=== PATIENT | female | born 1955 | race Caucasian/White ===

== ENCOUNTER 2021-05-23 22:58 | Inpatient (IN) | payer MEDICARE ==
[2021-05-23] MEDS ORDERED: Calcium Gluc 4.6 MEQ/10 ML (100 MG/ML) ONE (23:54)
[2021-05-23] MEDS ORDERED: Vancomycin 1 GM/200 ML BAG ONE (23:54)
[2021-05-23] MEDS ORDERED: Cefepime 2 GM VIAL ONE (23:54)
[2021-05-24 00:52] LABS: Anion Gap 13 mmol/L (10-20); BUN (Urea Nitrogen) 58 mg/dL (9.8-20.1); Calc. Creatinine Clearance 0 mL/min (70-130); Carbon Dioxide 23 mmol/L (23-31); Chloride 100 mmol/L (98-107); Glucose 197 mg/dL (80-115); Potassium 6.2 mmol/L (3.5-5.1); Sodium 130 mmol/L (136-145)
[2021-05-24] MEDS ORDERED: Calcium Gluc 4.6 MEQ/10 ML (100 MG/ML) ONE (01:37)
[2021-05-24] MEDS ORDERED: Insulin Regular 300 UNITS/3 ML VIAL ONE (01:37)
[2021-05-24] MEDS ORDERED: Dextrose 50% Abboject 50 ML SYRINGE ONE ×2 (01:38→01:39)
[2021-05-24] MEDS ORDERED: Sodium Bicarb 50 MEQ/50 ML Abboject 8.4% SYRINGE ONE (01:38)
[2021-05-24] MEDS ORDERED: Furosemide 40 MG/4 ML VIAL ONE (02:02)
[2021-05-24 03:36] LABS: Bilirubin Negative (Negative); Blood, Urine Negative (Negative); Clarity Clear (Clear); Glucose, Urine (Dipstick) 300 mg/dL (Negative); Ketone, Urine Negative (Negative); Leukocyte Negative Leu/uL (Negative); Nitrite Negative (Negative); Protein, Urine (Dipstick) Negative (Neg-Trace); Specific Gravity, Urine 1.007 (1.002-1.036); Urobilinogen Normal mg/dL (Less than 2)
[2021-05-24 03:45] LABS: ALT (SGPT) 75 U/L (8-55); AST (SGOT) 66 U/L (5-34); Albumin 2.8 g/dL (3.4-4.8); Alkaline Phosphatase 142 U/L (40-110); Anion Gap 13 mmol/L (10-20); BUN (Urea Nitrogen) 63 mg/dL (9.8-20.1); Calc. Creatinine Clearance 0 mL/min (70-130); Calcium 10.9 mg/dL (7.8-10.44); Carbon Dioxide 26 mmol/L (23-31); Chloride 97 mmol/L (98-107); Globulin 3.9 g/dL (2.4-3.5); Glucose 302 mg/dL (80-115); Potassium 5.3 mmol/L (3.5-5.1); Protein, Total 6.7 g/dL (5.8-8.1); Sodium 131 mmol/L (136-145)
[2021-05-24 03:55] LABS: Bilirubin, Total 36.8 mg/dL (0.2-1.2)
[2021-05-24 04:54] LABS: Band 8 % (5-11); Eosinophils 1 % (0-10); Hemoglobin 14.4 g/dL (12.0-16.0); Lymphocytes 8 % (21-51); MDiff Complete? YES; Macrocytosis MODERATE=16-30 cells (100X) (0-5/hpf); Mean Corpuscular Hemoglobin 37.1 pg (27.0-31.0); Mean Platelet Volume 9.1 fL (7.4-10.4); Monocytes 8 % (0-10); Neutrophil 74 % (42-75); Platelet Count 54 thou/uL (130-400); Platelet Morphology Comment Appears Decreased; RBC Distribution Width 14.1 % (11.5-14.5); Reactive Lymphocytes 1 % (0-10); Red Blood Cell (RBC) Count 3.89 mill/uL (4.20-5.40); White Blood Cell (WBC) Count 15.8 thou/uL (4.8-10.8)
[2021-05-24] MEDS ORDERED: Albumin 25% 25 GM/100 ML BOT IVPB SCH (06:00)
[2021-05-24] MEDS ORDERED: Furosemide 40 MG/4 ML VIAL SLOW IVP SCH (06:00)
[2021-05-24 06:42] LABS: Creatinine, Urine Less than 20.00 mg/dL (47-110); Protein, Urine Random Quant Less than 10 mg/dL (1-14); Sodium, Urine 126 mmol/L (Not Available); Urea Nitrogen, Random Urine 126 mg/dl
[2021-05-24 10:02] LABS: SARS-CoV-2 NAA Rapid Test Not Detected (NotDetected)
[2021-05-24 13:21] LABS: Anion Gap 14 mmol/L (10-20); BUN (Urea Nitrogen) 63 mg/dL (9.8-20.1); Calc. Creatinine Clearance 0 mL/min (70-130); Calcium 10.7 mg/dL (7.8-10.44); Carbon Dioxide 30 mmol/L (23-31); Chloride 98 mmol/L (98-107); Glucose 273 mg/dL (80-115); Potassium 5.6 mmol/L (3.5-5.1); Sodium 136 mmol/L (136-145)
[2021-05-24] MEDS ORDERED: Dextrose 50% Abboject 50 ML SYRINGE SLOW IVP PRN (15:40)
[2021-05-24] MEDS ORDERED: Dextrose 5% in Water 1,000 ML IV PRN (15:40)
[2021-05-24] MEDS ORDERED: HumaLOG 300 UNITS/3 ML VIAL SC PRN (15:40)
[2021-05-24] MEDS: Heparin 5,000 UNITS/ML VIAL SC SCH ×3 (15:47→20:20)
[2021-05-24 16:37] VITALS: BMI 19.8
[2021-05-24] MEDS: Albumin 25% 25 GM/100 ML BOT IVPB SCH ×2 (18:12→23:13)
[2021-05-25] MEDS: Albumin 25% 25 GM/100 ML BOT IVPB SCH (06:22)
[2021-05-25 06:45] LABS: INR-International Normal Ratio 2.6
[2021-05-25 06:47] LABS: Glucose 243 mg/dL (80-115)
[2021-05-25 06:54] LABS: Anion Gap 15 mmol/L (10-20); BUN (Urea Nitrogen) 52 mg/dL (9.8-20.1); Calc. Creatinine Clearance 43 mL/min (70-130); Calcium 10.5 mg/dL (7.8-10.44); Carbon Dioxide 28 mmol/L (23-31); Chloride 104 mmol/L (98-107); Glucose 244 mg/dL (80-115); Potassium 4.8 mmol/L (3.5-5.1); Sodium 142 mmol/L (136-145)
[2021-05-25 07:21] LABS: #Eosinphils 0.1 thou/uL (0.0-0.7); #Lymphocytes 0.3 thou/uL (1.20-3.40); #Monocytes 0.6 thou/uL (0.11-0.59); #Neutrophils 3.6 thou/uL (1.40-6.50); %Eosinophils 1.8 % (0.0-10.0); %Lymphocytes 5.9 % (21.0-51.0); %Monocytes 13.7 % (0.0-10.0); %Neutrophils 78.6 % (42.0-75.0); Hemoglobin 10.3 g/dL (12.0-16.0); Mean Corpuscular HGB CONC 32.9 g/dL (32.0-36.0); Mean Corpuscular Hemoglobin 37.6 pg (27.0-31.0); Mean Platelet Volume 9.6 fL (7.4-10.4); Platelet Count 22 thou/uL (130-400); RBC Distribution Width 13.7 % (11.5-14.5); Red Blood Cell (RBC) Count 2.74 mill/uL (4.20-5.40); White Blood Cell (WBC) Count 4.6 thou/uL (4.8-10.8)
[2021-05-25] MEDS: Heparin 5,000 UNITS/ML VIAL SC SCH ×2 (10:42→16:05)
[2021-05-25 12:33] LABS: Glucose 224 mg/dL (80-115)
[2021-05-25] MEDS ORDERED: Morphine 2 MG/ML VIAL SLOW IVP PRN (15:34)
[2021-05-27] MEDS ORDERED: Lorazepam 0.5 MG TAB PO PRN (12:38)
[2021-05-27 17:18] VITALS: BP 126/58; TEMP 97.8
== END 2021-05-27 18:13 | disposition hospice, inpatient (51) | DRG 432 ==
LOC: ERS 22:58 → ERHOLD 05-24 03:41 → 2NO 05-24 15:58 → ONC 05-26 16:35 → UNDODISIN 05-27 14:59
PROVIDERS: ADMIT Internal Medicine; ATTEND Internal Medicine
DX: K70.31 Alcoholic cirrhosis of liver with ascites (principal); K72.00 Acute and subacute hepatic failure without coma; N17.9 Acute kidney failure, unspecified; E87.1 Hypo-osmolality and hyponatremia; D68.4 Acquired coagulation factor deficiency; C22.0 Liver cell carcinoma; Z20.822 Contact with and (suspected) exposure to COVID-19; Z66 Do not resuscitate; Z51.5 Encounter for palliative care; J44.9 Chronic obstructive pulmonary disease, unspecified; I10 Essential (primary) hypertension; F31.9 Bipolar disorder, unspecified; F17.210 Nicotine dependence, cigarettes, uncomplicated; E87.5 Hyperkalemia; F10.10 Alcohol abuse, uncomplicated; D69.6 Thrombocytopenia, unspecified; Z88.0 Allergy status to penicillin; Z88.5 Allergy status to narcotic agent; Z88.8 Allergy status to other drugs, medicaments and biological substances; Z79.51 Long term (current) use of inhaled steroids; Z79.899 Other long term (current) drug therapy
CPT/HCPCS: 36415; 36416; 51702; 71045; 76705; 80048; 81003; 82105; 82140; 82570; 82947; 84156; 84300; 84540; 85007; 85025; 85027; 85610; 87086; 93005; 96365; 96367; 96375; 96376; J0692; J1815; J1940; J1956; J2001; J3370; P9047; U0002

== ENCOUNTER 2021-05-27 18:19 | Inpatient (IN) | payer OTHER ==
[2021-05-27] MEDS ORDERED: Ondansetron ODT 4 MG TAB PO PRN (19:00)
[2021-05-27] MEDS ORDERED: Zolpidem Tartrate 5 MG TAB PO PRN (19:00)
[2021-05-27] MEDS ORDERED: Scopolamine 1.5 mg/72 hour Patch TOP PRN (19:00)
[2021-05-27] MEDS ORDERED: Lorazepam 1 MG TAB PO PRN ×2 (19:00)
[2021-05-27] MEDS ORDERED: Senokot 8.6 MG TAB PO PRN (19:00)
[2021-05-27] MEDS: Morphine 10 MG/0.5 ML ORAL SYRINGE SL PRN (19:58)
[2021-05-28] MEDS: Morphine 10 MG/0.5 ML ORAL SYRINGE SL PRN (06:36)
[2021-05-28 07:23] VITALS: BP 144/69; TEMP 97.8
== END 2021-05-28 16:56 | disposition hospice, inpatient (51) | DRG 951 ==
LOC: ONC 18:19
PROVIDERS: ADMIT Family Medicine; ATTEND Family Medicine
DX: Z51.5 Encounter for palliative care (principal); K72.00 Acute and subacute hepatic failure without coma; K76.7 Hepatorenal syndrome; Z66 Do not resuscitate; E87.1 Hypo-osmolality and hyponatremia; C22.8 Malignant neoplasm of liver, primary, unspecified as to type; N17.9 Acute kidney failure, unspecified; K74.60 Unspecified cirrhosis of liver; J44.9 Chronic obstructive pulmonary disease, unspecified; I10 Essential (primary) hypertension; F31.9 Bipolar disorder, unspecified; E87.5 Hyperkalemia
CPT/HCPCS: Q0162